=== PATIENT | female | born 1945 | race Caucasian/White ===

== ENCOUNTER 2017-05-22 17:44 | Emergency (ER) | payer OTHER ==
--- NOTE | 2017-05-22 17:56 | EDPHY ---
H & P Stated Complaint: Fall Source: Patient Exam Limitations: No limitations HPI/ROS: CHIEF COMPLAINT: Fall HISTORY OF PRESENT ILLNESS: Patient arrives by EMS from [facility]. They report that she fell approximately 45 minutes ago. There were no witnesses the room, but they were in the next room and described hearing a commotion and then she fell. They do not know exactly what happened caused fall. The patient has severe dementia and is alert to person only. She is at baseline with this, thus is difficult to obtain any reliable history. She was reportedly complaining of low back pain prior to arrival. She does have a hematoma of the scalp. No obtainable history otherwise as she will not provide any answers of substance. REVIEW OF SYSTEMS: Ten systems reviewed and are negative unless otherwise noted in the HPI PAST MEDICAL HISTORY: Dementia, vitamin-D deficiency PAST SURGICAL HISTORY: SOCIAL HISTORY: Lives in [facility] [place]. Nonsmoker There is documentation that her family member does have power of mentally retarded teacher, thus family members name is Maye Crow FAMILY HISTORY: Able to obtain. EXAMINATION General Appearance: Alert, no distress Head: normocephalic. Posterior scalp hematoma. No laceration. No Meneses sign. No raccoon eyes. Eyes: Pupils equal and round, no conjunctival pallor or injection ENT, Mouth: Mucous membranes moist. Airway is patent Neck: C-collar in place. Trachea is midline. Respiratory: Mild rhonchi. No wheezing, crackles or diminishment. Cardiovascular: Regular rate and irregular rhythm. Symmetric radial, DP and PT pulses are 2+. Gastrointestinal: Abdomen is soft and nontender Back: Mild tenderness of lumbar spine. No crepitus, step-off or deformity. Range of motion unable to be tested due to lack of patient cooperation Neurological: Alert to person. She will answer my questions otherwise. Patellar reflexes are symmetric. No tremor. Unable to obtain remainder of mental status or neuro exam otherwise. Skin: Warm and dry, no rash. There is a scalp hematoma. No lacerations abrasions or contusions Extremities: Spontaneously moving the arms. There is no indication of pain while passively ranging the hips. She is minimally moving the lower extremities. She is lying on the right lateral decubitus position. Good signs of perfusion all extremities. Psychiatric: Mood and affect normal DIFFERENTIAL DIAGNOSES: Including but not limited to hematoma, basilar skull fracture, intracranial hemorrhage, concussion, contusion, fracture, sprain, strain MDM: 5:50 p.m. A reported mechanical fall with hematoma to the posterior scalp. Potential low back pain injury as well. The patient is baseline dementia with great difficulty obtaining history from her. No documentation of anticoagulants. I have ordered CT scans of the head, cervical spine lumbar spine. I will obtain plain films of the chest, pelvis and hips. She is ranging both hips spontaneously and does not express any evidence of pain with passive range of motion. Family is reportedly notified. 6:40 p.m. The patient's daughter Maye Crow is at bedside. I discussed the scenario with her. She was contacted by Pooja Ndiaye informed that the patient had a mechanical fall after having a adult depends changed. She confirms that the patient is at baseline with her mentation. She does confirm the patient normally walks without assistance or any durable medical equipment. Thus we will attempt to ambulate her after the x-rays have been read. Patient remains awake. She is in no acute distress. 6:50 p.m. Notified by radiologist Dr. Johnson. CT scans of the head, cervical spine and lumbar spine reveal chronic changes but no acute findings. There is an incidental note of a left renal hyperdense lesion. Recommends outpatient follow -up for this. 7:30 p.m. I have re-evaluated the patient. She is sitting up in bed with a C-collar cleared by Dr. Jordan. She is more alert and conversing with her family. They are requesting liquid ibuprofen for her. We will attempt ambulation. I did inform them of the incidental left renal finding. 7:45 p.m. X-rays have been read by radiologist and there are no acute findings. Patient has ambulated in the silva without assistance and without difficulty. I have re- evaluated her she is sitting up. She here is more awake and responding to normal conversation. The patient's family at bedside all feel that she is at her baseline status. They are comfortable with her being taken home. They will follow up with primary care physician for the incidental finding and for definitive follow-up care. We discussed ED precautions. The patient's daughter at bedside does have power of mentally retarded teacher and is comfortable with taking her back to her residence at this time. She is discharged home stable condition. Patient was evaluated in conjunction with Dr. Jordan (Edwardo Reyes) Constitutional: Initial Vital Signs Temperature (C) 97.7 F 05/22/17 17:56 Heart Rate 69 05/22/17 17:56 Respiratory Rate 16 05/22/17 17:56 Blood Pressure 111/57 L 05/22/17 17:56 O2 Sat (%) 94 05/22/17 17:56 O2 Delivery Mode Room Air Allergies/Adverse Reactions: No Known Allergies Allergy (Unverified 05/22/17 17:51) Home Medications: Medication Instructions Recorded Colace 05/22/17 Tylenol 05/22/17 VITAMIN D 05/22/17 Medical Decision Making - Diagnostics Imaging Results: Imaging Impressions Cervical Spine CT 05/22/17 17:49 Impression: No evidence for acute intracranial abnormality. Scalp hematoma without evidence for skull fracture or intracranial hemorrhage. Mild periventricular and deep hemispheric white matter change that can be seen with small vessel ischemic disease. CT Cervical Spine Without Contrast History: Fall. Trauma. Technique: 1.5-mm helical images were obtained of the cervical spine without contrast. Multiplanar reformation was performed. Findings: No evidence for acute fracture. No significant spondylolisthesis. There is multilevel osteophytosis and uncovertebral joint hypertrophy and spurring. Levels of more significant encroachment are at C5-C6 and C6-C7 with moderate to severe neural foraminal and moderate central spinal canal narrowing. No evidence for prevertebral soft tissue swelling. Vascular calcifications are seen in the right carotid, indicating atherosclerotic disease. Impression: No evidence for acute fracture. Multilevel degenerative disk and degenerative joint disease cervical spine. Results called and discussed with Edwardo Reyes PA-C on May 22, [address] 05/22/17 17:49 Impression: No evidence for acute intracranial abnormality. Scalp hematoma without evidence for skull fracture or intracranial hemorrhage. Mild periventricular and deep hemispheric white matter change that can be seen with small vessel ischemic disease. CT Cervical Spine Without Contrast History: Fall. Trauma. Technique: 1.5-mm helical images were obtained of the cervical spine without contrast. Multiplanar reformation was performed. Findings: No evidence for acute fracture. No significant spondylolisthesis. There is multilevel osteophytosis and uncovertebral joint hypertrophy and spurring. Levels of more significant encroachment are at C5-C6 and C6-C7 with moderate to severe neural foraminal and moderate central spinal canal narrowing. No evidence for prevertebral soft tissue swelling. Vascular calcifications are seen in the right carotid, indicating atherosclerotic disease. Impression: No evidence for acute fracture. Multilevel degenerative disk and degenerative joint disease cervical spine. Results called and discussed with Edwardo Reyes PA-C on May 22, 2017 at [address] 05/22/17 17:49 Impression: 1. No evidence for acute fracture. Multilevel degenerative disk and degenerative joint disease lumbar spine. 2. 7-mm hyperdense lesion in the superior pole of the left kidney. Consider CT or MRI without and with contrast for further evaluation. Chest X-Ray 05/22/17 17:56 Impression: No evidence for acute cardiopulmonary abnormality. Hip X-Ray 05/22/17 17:56 Impression: No evidence for acute fracture. Degenerative change, as above. Other Provider: I have evaluated and participated in the management of this patient. My co- signature indicates that I have reviewed this chart and that I agree with the findings and the plan of care as documented. My personal history and physical findings include: Unwitnessed fall in a shelter. At the time of my exam I note a high parietal cephalohematoma. She has no neck tenderness. Cervical spine CT is negative for acute injury. I removed her cervical collar at 7:00 p.m.. Lungs are clear. Heart is regular. Abdomen is nontender. I was able to range her hips and legs with no apparent pain. Family is in the room. ( Marie Jordan) - Data Points Medications Given: Discontinued Medications Ibuprofen (Motrin Oral Solution) 400 mg PO EDNOW ONE Stop: 05/22/17 19:37 Last Admin: 05/22/17 19:39 Dose: 400 mg Departure - Departure Disposition: Home, Routine, Self-Care Clinical Impression: Abnormal renal finding Fall Qualifiers: Encounter type: initial encounter Qualified Code(s): W19.XXXA - Unspecified fall, initial encounter Hematoma of occipital surface of head Qualifiers: Encounter type: initial encounter Qualified Code(s): S00.83XA - Contusion of other part of head, initial encounter Dementia Qualifiers: Dementia type: unspecified type Dementia behavioral disturbance: without behavioral disturbance Qualified Code(s): F03.90 - Unspecified dementia without behavioral disturbance Closed head injury Qualifiers: Encounter type: initial encounter Qualified Code(s): S09.90XA - Unspecified injury of head, initial encounter Condition: Good Instructions: Head Injury (ED), Hematoma (ED) Additional Instructions: 1. Continue previously prescribed medications 2. Ice to the hematoma frequently 3. Follow up with primary care physician for definitive care and for the incidental left renal finding Referrals: Patient,NotPresent [Unknown] - As per Instructions Alexandra Alvarez MD [[facility] [place] Primary Care Provider] - As per Instructions
[2017-05-22 18:02] VITALS: RESP 16
[2017-05-22] MEDS ORDERED: IBUPROFEN SUSP 100 MG/5 ML UDCUP ONE (19:35)
[2017-05-22] MEDS ORDERED: IBUPROFEN SUSP 100 MG/5 ML UDCUP PO ONE (19:36)
[2017-05-22 19:56] VITALS: BP 136/61; PULSE 74; TEMP 98.4; O2SAT 94
== END 2017-05-22 19:56 | disposition home or self-care (01) ==
DX: S00.83XA Contusion of other part of head, initial encounter (principal); W19.XXXA Unspecified fall, initial encounter; R94.4 Abnormal results of kidney function studies; F03.90 Unspecified dementia, unspecified severity, without behavioral disturbance, psychotic disturbance, mood disturbance, and anxiety